=== PATIENT | male | born 1965 | race African-American/Black ===

== ENCOUNTER 2020-06-08 02:44 | Emergency (ER) | payer MEDICAID ==
[~2020-06-08] VITALS: Ht 165.1 cm; Wt 66.0 kg
[2020-06-08 02:50] VITALS: BP 116/92
[2020-06-08] MEDS ORDERED: ACETAMINOPHEN 325MG TABLET PO ONE (03:30)
[2020-06-08 04:44] LABS: CLARITY URINE CLEAR (CLEAR); COLOR URINE YELLOW (YELLOW); KETONES URINE NEGATIVE (NEGATIVE); LEUKOCYTE ESTERASE URINE 2+ (NEGATIVE); NITRITE URINE NEGATIVE (NEGATIVE); OCCULT BLOOD URINE NEGATIVE (NEGATIVE); PROTEIN URINE TRACE (NEGATIVE); SPECIFIC GRAVITY URINE 1.027 (1.005-1.030)
[2020-06-08] MEDS ORDERED: AZITHROMYCIN 500 MG TABLET PO ONE (05:00)
[2020-06-08] MEDS ORDERED: CEFTRIAXONE SODIUM 250 MG/VIAL IM ONE (05:00)
[2020-06-10 13:12] LABS: NEISSERIA GONORRHOEAE NAA Positive (Negative)
== END 2020-06-08 05:26 | disposition home or self-care (01) ==
LOC: ER 02:44
DX: S90.111A Contusion of right great toe without damage to nail, initial encounter (principal); W22.8XXA Striking against or struck by other objects, initial encounter; Y93.89 Activity, other specified; Y92.89 Other specified places as the place of occurrence of the external cause; Y99.8 Other external cause status
CPT/HCPCS: 73630; 81003; 87086; 87491; 87591; 96372; 99284; J0696